=== PATIENT | female | born 2005 | race Caucasian/White ===

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

== ENCOUNTER 2024-02-13 18:01 | Emergency (ER) | payer OTHER ==
[~2024-02-13] VITALS: Ht 162.6 cm; Wt 75.3 kg
[~2024-02-13 18:01] MED LIST: AMOX1TAB8 PO; IBUP-2213 PO
[2024-02-13 19:16] VITALS: BP 107/77; PULSE 122; RESP 20; TEMP 98.4; O2SAT 97
[2024-02-13] MEDS: ACETAMINOPHEN 325 MG TAB PO ONE (20:29)
[2024-02-13 20:40] VITALS: BP 117/69; PULSE 93; RESP 14; O2SAT 99
--- NOTE | 2024-02-13 21:10 | NUR ---
Written and verbal after care instructions given and explained. Patient verbalized understanding. Ambulatory with steady gait. All questions addressed prior to discharge. Advised to follow up with PMD.
== END 2024-02-13 21:10 | disposition home or self-care (01) ==
LOC: MED 18:01
DX: O98.513 Other viral diseases complicating pregnancy, third trimester (principal); Z20.822 Contact with and (suspected) exposure to COVID-19; J11.1 Influenza due to unidentified influenza virus with other respiratory manifestations; Z3A.32 32 weeks gestation of pregnancy; Z79.899 Other long term (current) drug therapy
CPT/HCPCS: 99282